=== PATIENT | female | born 1955 | race Caucasian/White ===

== ENCOUNTER 2020-02-01 17:33 | Inpatient (IN) | payer MEDICARE, BC ==
[~2020-02-01] VITALS: Ht 152.4 cm; Wt 125.1 kg
--- NOTE | 2020-02-01 21:56 | NUR ---
PT ARRIVED TO ROOM VIA STRETCHER. A&O X4. NO DISTRESS OBSERVED. ORIENTED TO ROOM. CALL LIGHT IN REACH. WILL CTM.
--- NOTE | 2020-02-01 22:50 | NUR ---
RECEIVED ORDERS FORM CONSTANZA AMANDA
[2020-02-02] VITALS (8 sets, daily range): BP systolic 101–126; BP diastolic 42–85; BMI 46.4; BMI 46.3
[2020-02-02] MEDS ORDERED: FUROSEMIDE20 MG PO (03:50)
[2020-02-02] MEDS ORDERED: EMEND40 MG PO (03:50)
[2020-02-02] MEDS ORDERED: LOTREL 10-40 M1 EACH PO (03:50)
[2020-02-02] MEDS ORDERED: POTA CHLORIDE ER 10M PO (03:50)
[2020-02-02] MEDS ORDERED: HCTZ25 MG PO (03:50)
--- NOTE | 2020-02-02 04:42 | NUR ---
PT RESTING QUIELTY. NO VOICED C/O OR CONCERS. WILL CTM.
[2020-02-02 05:27] LABS: BASOPHILS 0.1 % (0-2); EOSINOPHILS 0.1 % (0-7); HEMATOCRIT 32.8 % (36.0-48.0); HEMOGLOBIN 10.2 g/dL (12-16); LYMPHOCYTES 13.5 % (15-50); MCH 31.7 pg (26.0-34.0); MCHC 31.1 g/dL (31.0-37.0); MCV 101.9 fL (80.0-100.0); MEAN PLATELET VOLUME 9.1 fL (7.4-10.4); MONOCYTES 18.6 % (2-11); NEUTROPHILS 66.7 % (40-80); PLATELET COUNT 223 10x3/uL (130-400); RBC 3.22 10x6/uL (4.00-5.40); WBC 17.8 10x3/uL (4.8-10.8)
[2020-02-02 05:42] LABS: ANION GAP 8.3 mmol/L (8-16); CALCIUM 8.9 mg/dL (8.5-10.1); CARBON DIOXIDE 29.9 mmol/L (21.0-32.0); CREATININE - SERUM 1.1 mg/dL (0.6-1.3); POTASSIUM - SERUM 4.2 mmol/L (3.5-5.1)
--- NOTE | 2020-02-02 07:15 | NUR ---
RECEIVED PT IN BED AAOX4 RESP UNLABORED SKIN W/D COLOR WNL DDENIES ANY NEEDS OR DISCOMFORT NAD NOTED RESISTED IV TO RT WRIST WITH 22 GA IV CATH X 1 STICK USING ASEPTIC TECHNIQUE PT TOLERATED WELL
--- NOTE | 2020-02-02 16:08 | NUR ---
PT REFUSES SCDs
--- NOTE | 2020-02-02 19:20 | NUR ---
SAW TO SEVERAL NEEDS PT CO COUGHING AND OF PAIN ALL OVER BED LOW AND LOCKED CALL LIGHT IN REACH WITH FAMILY PRESENT AT THIS TIME
--- NOTE | 2020-02-03 03:29 | NUR ---
I have reviewed this patient and I concur with the Shift Assessment completed by the Licensed Practical Nurse today this shift.
[2020-02-03 04:27] VITALS: BP 119/47
[2020-02-03 06:17] LABS: ANION GAP 9.7 mmol/L (8-16); CALCIUM 8.6 mg/dL (8.5-10.1); CARBON DIOXIDE 28.4 mmol/L (21.0-32.0); MAGNESIUM - SERUM 2.4 mg/dL (1.8-2.4); POTASSIUM - SERUM 4.1 mmol/L (3.5-5.1)
[2020-02-03 06:20] LABS: BASOPHILS 0.1 % (0-2); EOSINOPHILS 0.1 % (0-7); HEMATOCRIT 30.9 % (36.0-48.0); HEMOGLOBIN 9.5 g/dL (12-16); IMMATURE GRANULOCYTES 1.1 % (0-5); LYMPHOCYTES 14.8 % (15-50); MCH 31.6 pg (26.0-34.0); MCHC 30.7 g/dL (31.0-37.0); MCV 102.7 fL (80.0-100.0); MEAN PLATELET VOLUME 9.3 fL (7.4-10.4); MONOCYTES 15.7 % (2-11); NEUTROPHILS 68.2 % (40-80); PLATELET COUNT 245 10x3/uL (130-400); RBC 3.01 10x6/uL (4.00-5.40); RDW 14.5 % (11.5-14.5); WBC 19.3 10x3/uL (4.8-10.8)
[2020-02-03 08:47] VITALS: BP 116/59
--- NOTE | 2020-02-03 12:26 | NUR ---
TEMP 102.4 PRN TYLENOL GIVEN. BLOOD CULTURES DRAWN THIS AM STILL PENDING
--- NOTE | 2020-02-03 13:03 | NUR ---
PT TEMP 99.9, PT DENIES ANY NEEDS. SITTINGUP IN CHAIR AT BEDSIDE. HAT PLACED FOR URINE COLLECTION AT NEXT VOID.
[2020-02-03 13:11] VITALS: BP 105/52
--- NOTE | 2020-02-03 14:18 | NUR ---
ATTEMPTED TO COLLECT UA FROM [facility] AFTER PT VOIDED PT REPORTS UNABLE TO URINATE INTO HAT. 2ND [facility] PLACED ADVISED PT TO LET NURSE KNOW WHEN SHE URINATES
[2020-02-03 16:46] LABS: BILIRUBIN NEGATIVE (NEGATIVE); GLUCOSE NEGATIVE (NEGATIVE); KETONE NEGATIVE (NEGATIVE); NITRITE NEGATIVE (NEGATIVE); UROBILINOGEN NORMAL (NORMAL)
[2020-02-03 16:47] LABS: BACTERIA MANY /hpf (NEGATIVE); EPITHELIAL CELLS OCC /hpf (0-5); RED CELLS - URINE 0-5 /hpf (0-5); WHITE CELLS - URINE 0-5 /hpf (NEGATIVE)
[2020-02-03 17:10] VITALS: BP 95/53
--- NOTE | 2020-02-03 19:35 | NUR ---
REPORT RECEIVED AND ROUNDING COMPLETE. PATIENT LAYING IN BED IN LOW FOWLERS POSITION. PATIENT HAS ALEFT HAND PIV WITH ABX RUNNING AT THIS TIME. PATIENT STATES SHE IS FEELING A LITTLE BETTER AND IS IN GOOD SPIRITS. NO DISTRESS NOTED AT THIS TIME. PATIENT REQUESTED A GLASS OF ICE WATER WHICH I BROUGHT TO HER. CALL LIGHT WITHIN REACH AND BED IN LOWEST LOCKED POSITION.
[2020-02-03 19:58] VITALS: BP 107/44
--- NOTE | 2020-02-03 21:44 | NUR ---
DAUGHTER CALLED AND IS UPSET THAT SHE DID NOT HAVE THE PASSWORD TO FIND OUT ABOUT HER MOTHER AND THAT HER MOTHER STATES SHE WOULD CALL HER LATER SHE IS TO TIRED TO TALK NOW. I EXPLAINED THAT SHE HAS TO HAVE A CODE TO GET INFORMATION AND SHE WAS UPSET BUT UNDERSTOOD AND STATES SHE WILL GET IT TOMORROW WHEN SHE COMES UP.
[2020-02-03 23:28] VITALS: BP 139/62
[2020-02-04 04:11] VITALS: BP 124/65
[2020-02-04 05:22] LABS: ANION GAP 9.2 mmol/L (8-16); CALCIUM 8.7 mg/dL (8.5-10.1); CARBON DIOXIDE 30.5 mmol/L (21.0-32.0); CREATININE - SERUM 1.2 mg/dL (0.6-1.3); MAGNESIUM - SERUM 2.2 mg/dL (1.8-2.4); POTASSIUM - SERUM 3.7 mmol/L (3.5-5.1)
[2020-02-04 05:25] LABS: HEMATOCRIT 31.4 % (36.0-48.0); MCH 32.5 pg (26.0-34.0); MCHC 31.8 g/dL (31.0-37.0); MCV 101.9 fL (80.0-100.0); MEAN PLATELET VOLUME 9.5 fL (7.4-10.4); PLATELET COUNT 241 10x3/uL (130-400); RBC 3.08 10x6/uL (4.00-5.40); RDW 14.8 % (11.5-14.5); WBC 21.2 10x3/uL (4.8-10.8)
[2020-02-04 08:12] VITALS: BP 124/56
[2020-02-04 10:33] LABS: LYMPHOCYTES 18 % (15-50); MONOCYTES 19 % (2-11); NEUTROPHILS 62 % (40-80); PLATELET ESTIMATE NORMAL; PLATELET MORPHOLOGY GIANT PLTS PRESENT
[2020-02-04 11:40] VITALS: BP 128/54
--- NOTE | 2020-02-04 13:32 | NUR ---
Nutrition Follow-up: Good/fair PO intake. Diet: Diabetic PO intake: 50-100% Wt: 229.4# (02/03); 237.2# (02/01) No BMs recorded Labs noted: Glu 101 Meds noted: HCTZ, Protonix, NS @ 75, electrolyte protocol -Encourage PO intake and honor food preferences within diet restrictions. -Monitor wt; noted daily wts ordered. -RD following.
[2020-02-04 16:35] VITALS: BP 125/69
[2020-02-04 20:00] VITALS: BP 100/43
--- NOTE | 2020-02-04 20:04 | NUR ---
REPORT RECEIVED AND ROUNDING COMPLETE. PATIENT SITTING IN HER CHAIR, ASSISTED HER TO HER BED TO REST. STAND BY ASSIST ONLY, WEARING NASAL CANNULA WITH O2 AT 3L, PIV TO THE LEFT HAND WITH FLUIDS RUNNING. NO DISTRESS NOTED AT THIS TIME. PATIENT STATES SHE HAS NO NEEDS, CALL LIGHT WITHIN REACH AND BED IN LOWEST LOCKED POSITION.
--- NOTE | 2020-02-04 20:18 | MORECARE ---
CASE MANAGEMENT DISCHARGE SUMMARY PATIENT: GLADIS BERG UNIT: [id number] ADM DATE: 02/01/20 AGE: 65 : 55 SEX: F ROOM/BED: D.2127 AUTHOR: LUNA ARREDONDO PHYSICIAN: REFERRING PHYSICIAN: ESHA MIX MD DATE OF SERVICE: 02/04/20 Discharge Plan Patient Name: GLADIS BERG [facility] [facility] 1955 Planned Disposition: Home with Home Health Anticipated Discharge Date: Discharge Date: Expected LOS: Initial Reviewer: [email or web address] Initial Review Date: 02/01/2020 Generated: 02/04/20 9:18 pm Patient Name: GLADIS BERG Page [id number] at 2018 All edits/amendments must be made on the electronic document DICTATION DATE: 02/04/20 2018 ROOM SERVICE BELLHOP: ALLISON 02/04/20 2018 RPT#: [id number] DC DATE: STATUS: ADM IN [facility] [address] [place] [address] END OF REPORT
--- NOTE | 2020-02-04 20:25 | MORECARE ---
CASE MANAGEMENT DISCHARGE SUMMARY PATIENT: GLADIS BERG UNIT: [id number] ADM DATE: 02/01/20 AGE: 65 : 55 SEX: F ROOM/BED: D.6316 AUTHOR: LUNA ARREDONDO PHYSICIAN: REFERRING PHYSICIAN: ESHA MIX MD DATE OF SERVICE: 02/04/20 Discharge Plan Patient Name: GLADIS BERG [facility] [facility] 1955 Planned Disposition: Home with Home Health Anticipated Discharge Date: Discharge Date: Expected LOS: Initial Reviewer: [email or web address] Initial Review Date: 02/01/2020 Generated: 02/04/20 9:24 pm DCPIA - Discharge Planning Initial Assessment Updated by [email or web address]: Minna Calderon on 02/04/20 8:20 pm * Is the patient Alert and Oriented? Yes * How many steps to enter\exit or inside your home? 0/0 * PCP Luca * Pharmacy [facility] in [place] * Preadmission Environment Home with Family * ADLs Independent * Equipment None * List name and contact numbers for known caregivers / representatives who currently or will assist patient after discharge: Dtr [phone] * Verbal permission to speak to the caregivers and representatives has been obtained from the patient. Yes * Community resources currently utilized Home Health * Please name any agencies selected above. [facility] [phone] * Additional services required to return to the preadmission environment? Yes * Can the patient safely return to the preadmission environment? No * Has this patient been hospitalized within the prior 30 days at any hospital? No Last DP export: 02/04/20 7:18 pm Patient Name: GLADIS BERG Page [phone] at 2024 All edits/amendments must be made on the electronic document DICTATION DATE: 02/04/202023 PAINT ROLLER COVERMAKER: ALLISON 02/04/202023 RPT#: [id number] DC DATE: STATUS: ADM IN [facility] [address] [place] [address] END OF REPORT
--- NOTE | 2020-02-04 20:32 | MORECARE ---
CASE MANAGEMENT DISCHARGE SUMMARY PATIENT: GLADIS BERG UNIT: [id number] ADM DATE: 02/01/20 AGE: 65 : 55 SEX: F ROOM/BED: D.0208 AUTHOR: MARIA ELENA,DOC PHYSICIAN: REFERRING PHYSICIAN: ESHA MIX MD DATE OF SERVICE: 02/04/20 Discharge Plan Patient Name: GLADIS BERG Facility: [facility]:[place] : 1955 Planned Disposition: Home with Home Health Anticipated Discharge Date: Discharge Date: Expected LOS: Initial Reviewer: [email or web address] Initial Review Date: 02/01/2020 Generated: 02/04/20 9:31 pm Comments DCP- Discharge Planning Updated by [email or web address]: Minna Calderon on 02/04/20 7:[address] Patient Name: GLADIS BERG Admission Status: Elective Accout number: [id number] Admission Date: 02-01-2020 : 1955 Admission Diagnosis:SHORTNESS OF BREATH Attending: ESHA ARORA Current LOS: 3 Anticipated DC Date: Planned Disposition: Home with Home Health Primary Insurance: MEDICARE A & B Late entry assessment completed 02/03/20 @1100 Discharge Planning Comments: CM met with patient to complete initial dc planning assessment. CM educated patient on the CM role and verbal consent given by patient to complete assessment. CM verified patient's address, phone number, and emergency contact phone numbers. Pt lives at [address] [place] [address]. Patient lives at home and her adult daughter ([phone]) lives with her. At discharge patient plans to return home and feels this is a safe discharge. CM discussed availability of home health, rehab services, and medical equipment. Pt is requiring oxygen at 3 liters, and states she is weak. Patient states she will think about IP rehab, DME oxygen providers, and states she will resume [place] [facility]. Transportation provider at discharge will be her daughter. CM will continue to follow and will assist as needed with dc plans/needs. [employer] Worker: Minna Calderon MSN,RN,CM DCPIA - Discharge Planning Initial Assessment Updated by [email or web address]: Minna Calderon on 02/04/20 8:20 pm * Is the patient Alert and Oriented? Yes * How many steps to enter\exit or inside your home? 0/0 * PCP Luca * Pharmacy [facility] [place] * Preadmission Environment Home with Family * ADLs Independent * Equipment None * List name and contact numbers for known caregivers / representatives who currently or will assist patient after discharge: Dtr [phone] * Verbal permission to speak to the caregivers and representatives has been obtained from the patient. Yes * Community resources currently utilized Home Health * Please name any agencies selected above. [facility] [phone] * Additional services required to return to the preadmission environment? Yes * Can the patient safely return to the preadmission environment? No * Has this patient been hospitalized within the prior 30 days at any hospital? No Last DP export: 02/04/20 7:25 pm Patient Name: GLADIS BERG Page [phone] at 2031 All edits/amendments must be made on the electronic document DICTATION DATE: 02/04/202030 COMPENSATION ADVISOR: ALLISON 02/04/202030 RPT#: [id number] DC DATE: STATUS: ADM IN [facility] [address] [place] [address] END OF REPORT
[2020-02-05] VITALS: BP 118/52
[2020-02-05 05:40] LABS: BASOPHILS 0.2 % (0-2); EOSINOPHILS 0.4 % (0-7); HEMATOCRIT 29.6 % (36.0-48.0); HEMOGLOBIN 9.4 g/dL (12-16); IMMATURE GRANULOCYTES 4.5 % (0-5); LYMPHOCYTES 14.4 % (15-50); MCH 32.2 pg (26.0-34.0); MCHC 31.8 g/dL (31.0-37.0); MCV 101.4 fL (80.0-100.0); MEAN PLATELET VOLUME 9.4 fL (7.4-10.4); MONOCYTES 15.4 % (2-11); NEUTROPHILS 65.1 % (40-80); PLATELET COUNT 249 10x3/uL (130-400); RBC 2.92 10x6/uL (4.00-5.40); RDW 14.6 % (11.5-14.5); WBC 18.4 10x3/uL (4.8-10.8)
[2020-02-05 05:56] LABS: % SATURATION 14 % (15-55); IRON 25 ug/dl (35-150); TOTAL IRON BIND CAPACITY 174 ug/dl (260-445); UNSAT IRON BIND CAPACITY 149 ug/dl (150-375)
[2020-02-05 06:03] LABS: CALCIUM 8.4 mg/dL (8.5-10.1); CARBON DIOXIDE 31.4 mmol/L (21.0-32.0); CREATININE - SERUM 1.1 mg/dL (0.6-1.3); VANCOMYCIN - TROUGH 13.2 ug/mL (10.0-20.0)
[2020-02-05 06:08] LABS: ANION GAP 7.6 mmol/L (8-16)
[2020-02-05 09:37] VITALS: BP 121/72
[2020-02-05 10:41] LABS: APTT 50.5 SECONDS (22.8-39.4); INR 1.12 (0.85-1.17); PROTIME 14.4 SECONDS (11.6-15.0)
[2020-02-05 14:00] VITALS: BP 144/65
--- NOTE | 2020-02-05 19:30 | NUR ---
PT IN BED, AAO X 3, RESP EVEN AND UNLABORED. NO DISTRESS NOTED. CL IN REACH, SR UP X 2.
[2020-02-05 20:00] VITALS: BP 120/55
--- NOTE | 2020-02-05 23:50 | NUR ---
PT LYING IN BED RESTING WITH EYES CLOSED. EASILY AWAKEN WITH VOICE STIMULATION. CALL LIGHT AND OTHER PERSONAL ITEMS WITH IN REACH. WILL CONTINUE TO MONITOR
[2020-02-06] VITALS: BP 125/62
[2020-02-06 04:00] VITALS: BP 139/45
[2020-02-06 05:15] LABS: BASOPHILS 0.2 % (0-2); EOSINOPHILS 0.5 % (0-7); HEMATOCRIT 30.1 % (36.0-48.0); HEMOGLOBIN 9.5 g/dL (12-16); IMMATURE GRANULOCYTES 3.4 % (0-5); LYMPHOCYTES 11.4 % (15-50); MCH 32.2 pg (26.0-34.0); MCHC 31.6 g/dL (31.0-37.0); MEAN PLATELET VOLUME 9.2 fL (7.4-10.4); MONOCYTES 13.6 % (2-11); NEUTROPHILS 70.9 % (40-80); PLATELET COUNT 298 10x3/uL (130-400); RBC 2.95 10x6/uL (4.00-5.40); RDW 14.9 % (11.5-14.5); WBC 18.4 10x3/uL (4.8-10.8)
[2020-02-06 05:33] LABS: ANION GAP 7.3 mmol/L (8-16); CALCIUM 8.8 mg/dL (8.5-10.1); CARBON DIOXIDE 34.9 mmol/L (21.0-32.0); CREATININE - SERUM 1.1 mg/dL (0.6-1.3); MAGNESIUM - SERUM 2.1 mg/dL (1.8-2.4); POTASSIUM - SERUM 3.2 mmol/L (3.5-5.1)
--- NOTE | 2020-02-06 07:29 | NUR ---
PER SPECIALS PT IS NOT SCHEDULED FOR CT GUIDED THORACENTESIS, THIS WAS ATTEMPTED YESTERDAY (02/04) AND WAS DETERMINED NOT ENOUGH FLUID TO PERFORM THORACENTESIS.
[2020-02-06 08:10] VITALS: BP 130/78
--- NOTE | 2020-02-06 08:54 | NUR ---
PT TEMP 101.5 AX BC X 2 ORDERED PER MD ORDER FOR BC FOR TEMP >101. PT DENIES NEEDS, NO ACUTE DISTRESS.
--- NOTE | 2020-02-06 09:25 | NUR ---
temp 99.8 oral, no distress noted, will continue to monitor
[2020-02-06 15:02] VITALS: BP 149/65
--- NOTE | 2020-02-06 19:30 | NUR ---
PT IN BED, AAO X 3, RESP EVEN AND UNLABORED. NO DISTRESS NOTED, CL IN REACH, SR UP X 2.
[2020-02-06 21:12] VITALS: BP 114/69
[2020-02-07 00:09] VITALS: BP 122/63
--- NOTE | 2020-02-07 05:00 | NUR ---
I have reviewed this patient and I concur with the Shift Assessment completed by the Licensed Practical Nurse today this shift.
[2020-02-07 05:07] VITALS: BP 145/65
--- NOTE | 2020-02-07 07:28 | NUR ---
PT AWAKE AND ORIENTED, LYING ON BED WATCHING TELIVISION. NO COMPLAINTS OR CONCERNS, ALL QUESTIONS ANSWERED TO THE BEST OF MY ABILITY. CL IN REACH, SRX2
[2020-02-07 09:44] VITALS: BP 103/32
[2020-02-07 09:47] LABS: MAGNESIUM - SERUM 1.6 mg/dL (1.8-2.4); VANCOMYCIN - TROUGH 58.9 ug/mL (10.0-20.0)
--- NOTE | 2020-02-07 10:16 | NUR ---
PT AWAKE AND ORIENTED, TOOK MEDICAITONS WITHOUT COMPLICATIONS. NO COMPLAINTS OR CONCERNS AT THIS TIME. CL IN REACH, SRX2.
[2020-02-07 12:54] VITALS: BP 122/50
[2020-02-07 16:00] VITALS: BP 127/62
--- NOTE | 2020-02-07 17:11 | NUR ---
I have reviewed this patient and I concur with the Shift Assessment completed by the Licensed Practical Nurse today this shift.
--- NOTE | 2020-02-07 19:30 | NUR ---
PT IN BED, AAO X 3, RESP EVEN AND UNLABORED, NO DISTRESS NOTED, CL IN REACH, SR UP X2.
[2020-02-08] VITALS: BP 117/50
--- NOTE | 2020-02-08 02:05 | NUR ---
I have reviewed this patient and I concur with the Shift Assessment completed by the Licensed Practical Nurse today this shift.
[2020-02-08 04:00] VITALS: BP 117/52
[2020-02-08 04:52] LABS: HEMATOCRIT 29.3 % (36.0-48.0); HEMOGLOBIN 9.2 g/dL (12-16); MCH 32.3 pg (26.0-34.0); MCHC 31.4 g/dL (31.0-37.0); MCV 102.8 fL (80.0-100.0); MEAN PLATELET VOLUME 9.1 fL (7.4-10.4); PLATELET COUNT 276 10x3/uL (130-400); RBC 2.85 10x6/uL (4.00-5.40); RDW 15.4 % (11.5-14.5); WBC 21.1 10x3/uL (4.8-10.8)
[2020-02-08 05:04] LABS: LYMPHOCYTES 9 % (15-50); MONOCYTES 8 % (2-11); NEUTROPHILS 79 % (40-80); PLATELET ESTIMATE NORMAL
[2020-02-08 05:05] LABS: ANION GAP 7.6 mmol/L (8-16); CALCIUM 7.3 mg/dL (8.5-10.1); CARBON DIOXIDE 32.9 mmol/L (21.0-32.0); POTASSIUM - SERUM 3.5 mmol/L (3.5-5.1)
[2020-02-08 05:08] LABS: CREATININE - SERUM 3.6 mg/dL (0.6-1.3); MAGNESIUM - SERUM 2.4 mg/dL (1.8-2.4)
--- NOTE | 2020-02-08 08:02 | NUR ---
PT AWAKE AND ORIENTED, ESCORTED TO RADIOLOGY FOR EXAM.
[2020-02-08 08:44] VITALS: BP 99/34
[2020-02-08 11:28] VITALS: Ht 152.4 cm; Wt 125.1 kg
[2020-02-08 11:41] VITALS: BP 119/47
[2020-02-08 12:35] LABS: ALBUMIN 1.6 g/dL (3.4-5.0); BILIRUBIN - DIRECT 0.19 mg/dL (0.00-0.30); BILIRUBIN - INDIRECT 0.23 mg/dL (0.00-1.00); BILIRUBIN - TOTAL 0.42 mg/dL (0.2-1.3); PROTEIN - SERUM 7.3 g/dL (6.4-8.2); VANCOMYCIN - RANDOM 37.3 ug/mL (10.0-20.0)
[2020-02-08 15:24] VITALS: BP 125/66
--- NOTE | 2020-02-08 17:26 | NUR ---
I have reviewed this patient and I concur with the Shift Assessment completed by the Licensed Practical Nurse today this shift.
--- NOTE | 2020-02-08 18:43 | NUR ---
PT ALERT AND ORIETNED, CL IN REACH, SRX2.
--- NOTE | 2020-02-08 19:22 | NUR ---
RECEIVED REPORT, WILL CONTINUE POC. PATIENT IS AAOX4, LYING IN SEMI-FOWLERS POSITION ON BREATHING TX. NO S/S OF DISTRESS OBSERVED, RR EVEN AND UNLABORED. PATIENT DENIES NEEDS AT THIS TIME. CL IN REACH, BED LOCKED AND LOWERED. WILL CTM.
[2020-02-08 20:30] VITALS: BP 124/48
[2020-02-09] VITALS (11 sets, daily range): BP systolic 114–155; BP diastolic 46–69
--- NOTE | 2020-02-09 00:32 | NUR ---
TEMP 101.2 AX, TYLENOL GIVEN PER ORDERS.
--- NOTE | 2020-02-09 02:54 | NUR ---
I have reviewed this patient and I concur with the Shift Assessment completed by the Licensed Practical Nurse today this shift.
[2020-02-09 07:29] LABS: BASOPHILS 0.2 % (0-2); EOSINOPHILS 0.4 % (0-7); HEMATOCRIT 29.2 % (36.0-48.0); HEMOGLOBIN 9.1 g/dL (12-16); IMMATURE GRANULOCYTES 1.3 % (0-5); LYMPHOCYTES 5.8 % (15-50); MCH 31.5 pg (26.0-34.0); MCHC 31.2 g/dL (31.0-37.0); MONOCYTES 10.7 % (2-11); NEUTROPHILS 81.6 % (40-80); PLATELET COUNT 290 10x3/uL (130-400); RBC 2.89 10x6/uL (4.00-5.40); RDW 15.4 % (11.5-14.5); WBC 20.2 10x3/uL (4.8-10.8)
[2020-02-09 07:31] LABS: ALBUMIN 1.6 g/dL (3.4-5.0); ANION GAP 8.9 mmol/L (8-16); BILIRUBIN - TOTAL 0.38 mg/dL (0.2-1.3); CALCIUM 8.5 mg/dL (8.5-10.1); CARBON DIOXIDE 33.4 mmol/L (21.0-32.0); MAGNESIUM - SERUM 2.5 mg/dL (1.8-2.4); POTASSIUM - SERUM 3.3 mmol/L (3.5-5.1); PROTEIN - SERUM 7.6 g/dL (6.4-8.2)
--- NOTE | 2020-02-09 08:00 | NUR ---
PT AWAKE AND ORIENTED, LYING IN BED. WAITING ON THORACENTISIS, WILL CNT. TO MONITOR. CL IN REACH,S RX2.
--- NOTE | 2020-02-09 09:09 | NUR ---
PT STILL FOR THORACENTISSI
--- NOTE | 2020-02-09 09:45 | NUR ---
PT BACK IN ROOM POST THORACENTISIS. STRICT BEDREST REQUIRED UNTIL 1130.
--- NOTE | 2020-02-09 10:50 | NUR ---
PT IS ALERT AND ORIENTED, TOLERATING POST OP WELL. V/S STABLE AND WNL. DAUGHTER AT BEDSIDE, ALL QUESTIONS ANSWERED TO THE BEST OF MY ABILITY. CL IN REACH, SRX2.
--- NOTE | 2020-02-09 11:16 | NUR ---
PT UP TO THE BATHROOM WITH MIN ASSIST FROM DAUGHTER, DAUGHTER GIVING PT A WASH UP WHILE SHE'S ON THE TOILET. TOLERATEED POST OP GETTING UP WITHOUT DIFFICULTY. CL IN REACH, SRX2, DAUGHTER AT BEDSIDE.
--- NOTE | 2020-02-09 11:27 | NUR ---
NOTED NEW RASH ON CHEST, DID NOT BEGAN APPEARING UNTIL THE ANTIBIOTIC (LEVAQUIN) WAS STARTED. TURNED OFF ABX, WILL NOTIFY OR CHANGE.
--- NOTE | 2020-02-09 13:45 | NUR ---
OT NOTE: NURSING REPORTS PT IS INDEP WITH ADLS AND MOBILITY. REPORTS THAT SHE GETS AROUND HER ROOM BY HERSELF AND TAKES CARE OF ADL NEEDS WITHOUT ASSIST. BIBI HUSSEIN, OTR/L
[2020-02-09 17:33] LABS: PROTEIN - BODY FLUID 4.7 G/DL
[2020-02-09 18:05] LABS: BILIRUBIN NEGATIVE (NEGATIVE); GLUCOSE NEGATIVE (NEGATIVE); KETONE NEGATIVE (NEGATIVE); NITRITE NEGATIVE (NEGATIVE); UROBILINOGEN NORMAL (NORMAL)
[2020-02-09 18:07] LABS: BACTERIA FEW /hpf (NEGATIVE); RED CELLS - URINE OCC /hpf (0-5); WHITE CELLS - URINE 0-5 /hpf (NEGATIVE)
[2020-02-09 19:52] LABS: EOS BF 1 %; MACROPHAGES BF 1 %; NEUT - BF 51 %
--- NOTE | 2020-02-10 01:50 | NUR ---
RESTING WITH EYES CLOSED, RESPERATIONS EVEN, NO S/S DISTRESS NOTED.
--- NOTE | 2020-02-10 03:25 | NUR ---
I have reviewed this patient and I concur with the Shift Assessment completed by the Licensed Practical Nurse today this shift.
[2020-02-10 04:23] VITALS: BP 125/69
[2020-02-10 06:33] LABS: BASOPHILS 0.1 % (0-2); EOSINOPHILS 0.7 % (0-7); HEMATOCRIT 29.8 % (36.0-48.0); HEMOGLOBIN 9.3 g/dL (12-16); IMMATURE GRANULOCYTES 0.9 % (0-5); MCH 31.3 pg (26.0-34.0); MCHC 31.2 g/dL (31.0-37.0); MCV 100.3 fL (80.0-100.0); MEAN PLATELET VOLUME 9.1 fL (7.4-10.4); MONOCYTES 7.6 % (2-11); NEUTROPHILS 83.7 % (40-80); PLATELET COUNT 344 10x3/uL (130-400); RBC 2.97 10x6/uL (4.00-5.40); RDW 15.3 % (11.5-14.5); WBC 18.5 10x3/uL (4.8-10.8)
[2020-02-10 07:29] LABS: PRO BNP 283 pg/mL (0-125)
[2020-02-10 07:41] LABS: ALBUMIN 1.7 g/dL (3.4-5.0); ANION GAP 10.1 mmol/L (8-16); BILIRUBIN - TOTAL 0.35 mg/dL (0.2-1.3); CALCIUM 8.1 mg/dL (8.5-10.1); CARBON DIOXIDE 31.1 mmol/L (21.0-32.0); MAGNESIUM - SERUM 2.4 mg/dL (1.8-2.4); POTASSIUM - SERUM 3.2 mmol/L (3.5-5.1); PROTEIN - SERUM 7.9 g/dL (6.4-8.2); VANCOMYCIN - TROUGH 18.1 ug/mL (10.0-20.0)
[2020-02-10 08:03] LABS: C-REACTIVE PROTEIN 46.2 mg/dL (0.0-0.9)
[2020-02-10 09:48] LABS: ERYTHROCYTE SEDIMENTATION RATE 136 mm/hr (0-30)
[2020-02-10 10:03] VITALS: BP 117/73
[2020-02-10 13:19] VITALS: BP 101/70
--- NOTE | 2020-02-10 14:03 | NUR ---
Nutrition Follow-up: Pt reports fluctuating appetite; ate ~25% of breakfast this AM. C/o thrush. Denies N/V; reports liquid BMs. Declines nutrition supplements. Diet: Diabetic, Renal Wt: 222.4# (02/09); 221.6# (02/02) Labs noted: K+ 3.2, Ca 8.1, Alb 1.7 Meds noted: Nystatin, Protonix, electrolyte protocol -MD may consider liberalizing to cardiac carb consistent diet (K+ 3.2). -Encourage PO intake and honor food preferences within diet restrictions. -Pt may benefit from appetite stimulant. -Monitor wt; noted daily wts ordered. -RD following.
[2020-02-10 15:10] LABS: ACID FAST SMEAR Negative (()); AFB SPECIMEN PROCESSING Concentration (())
[2020-02-10 16:56] VITALS: BP 143/56
[2020-02-10 20:17] VITALS: BP 105/63
[2020-02-11 00:24] VITALS: BP 134/65
[2020-02-11 05:11] VITALS: BP 131/57
[2020-02-11 06:36] LABS: ALBUMIN 1.5 g/dL (3.4-5.0); ANION GAP 10.3 mmol/L (8-16); BILIRUBIN - TOTAL 0.34 mg/dL (0.2-1.3); CALCIUM 8.1 mg/dL (8.5-10.1); CARBON DIOXIDE 30.5 mmol/L (21.0-32.0); CREATININE - SERUM 3.7 mg/dL (0.6-1.3); MAGNESIUM - SERUM 2.3 mg/dL (1.8-2.4); POTASSIUM - SERUM 3.8 mmol/L (3.5-5.1); PROTEIN - SERUM 7.4 g/dL (6.4-8.2)
[2020-02-11 07:04] VITALS: BP 118/42
[2020-02-11 07:32] LABS: BASOPHILS 0.1 % (0-2); EOSINOPHILS 0.7 % (0-7); HEMATOCRIT 28.6 % (36.0-48.0); HEMOGLOBIN 8.8 g/dL (12-16); IMMATURE GRANULOCYTES 0.8 % (0-5); LYMPHOCYTES 5.6 % (15-50); MCH 31.1 pg (26.0-34.0); MCHC 30.8 g/dL (31.0-37.0); MCV 101.1 fL (80.0-100.0); MEAN PLATELET VOLUME 8.7 fL (7.4-10.4); MONOCYTES 6.6 % (2-11); NEUTROPHILS 86.2 % (40-80); PLATELET COUNT 333 10x3/uL (130-400); RBC 2.83 10x6/uL (4.00-5.40); RDW 15.2 % (11.5-14.5); WBC 17.9 10x3/uL (4.8-10.8)
[2020-02-11 10:10] LABS: CALCIUM 7.7 mg/dL (8.5-10.1); CARBON DIOXIDE 29.7 mmol/L (21.0-32.0); CREATININE - SERUM 3.5 mg/dL (0.6-1.3); POTASSIUM - SERUM 3.7 mmol/L (3.5-5.1); VANCOMYCIN - TROUGH 18.8 ug/mL (10.0-20.0)
[2020-02-11 10:11] LABS: FUNGUS STAIN Final report (())
[2020-02-11 10:11] LABS: ANA REFLEX - DIRECT Negative (Negative)
[2020-02-11 10:42] LABS: BASOPHILS 0.2 % (0-2); EOSINOPHILS 1.9 % (0-7); HEMATOCRIT 27.3 % (36.0-48.0); HEMOGLOBIN 8.6 g/dL (12-16); IMMATURE GRANULOCYTES 1.4 % (0-5); MCH 33.5 pg (26.0-34.0); MCHC 31.5 g/dL (31.0-37.0); MEAN PLATELET VOLUME 9.8 fL (7.4-10.4); MONOCYTES 6.1 % (2-11); NEUTROPHILS 83.4 % (40-80); PLATELET COUNT 287 10x3/uL (130-400); RBC 2.57 10x6/uL (4.00-5.40); RDW 15.9 % (11.5-14.5); WBC 18.7 10x3/uL (4.8-10.8)
[2020-02-11 10:45] LABS: MCV 106.2 fL (80.0-100.0)
--- NOTE | 2020-02-11 12:22 | NUR ---
I have reviewed this patient and I concur with the Shift Assessment completed by the Licensed Practical Nurse today this shift.
[2020-02-11 12:37] VITALS: BP 143/46
--- NOTE | 2020-02-11 15:25 | NUR ---
PT'S DAUGHTER AT BEDSIDE AND POINTED OUT RED RASH AND PT'S CHEST AND BACK AND STATES IT HAS INCREASINGLY GOTTEN WORSE SINCE SUNDAY SHE ALSO STATES SHE WANTS TO SEE AND SPEAK WITH DR. ULLOA. DR. LAILA KELLOGG.
--- NOTE | 2020-02-11 15:37 | NUR ---
SPOME WITH MYRA TURNER AND SHE STATES SHE WILL GO SPEAK WITH PT AND PT'S DAUGHTER AND LOOK AT RASH. I VERBALIZED UNDERSTANDING.
--- NOTE | 2020-02-11 15:43 | NUR ---
DR. ULLOA ON THE PHONE SPEAKING WITH DAUGHTER NOW ALONG WITH NEEMA TURNER AT BEDSIDE.
[2020-02-11 16:20] VITALS: BP 133/60
--- NOTE | 2020-02-11 17:23 | NUR ---
PT'S AND PT'S DAUGHTER STATED TO ME PT IS GOING TO BE NPO AFTER MIDNIGHT FOR THROACENTESIS TOMORROW AND THAT IS WHAT THE DOCTOR'S TOLD THEM. NO ORDERS HAVE BEEN PLACED YET. CALLED CT AND THEY STATE THEY WILL CALL ME BACK. I VERBALIZZED UNDERSTANDING.
--- NOTE | 2020-02-11 17:50 | NUR ---
SPOKE WITH CT AND THEY STATE THEY CAN'T FIND ANY ORDERS BUT TO GO AHEAD AND MAKE PT NPO AFTER MIDNIGHT UNTIL THEY CAN FIND OUT FURTHER INFORMATION IN THE MORNING. I VERBALIZED UNDERSTANDING.
--- NOTE | 2020-02-11 19:00 | NUR ---
RECEIVED BEDSIDE REPORT. PATIENT IS RESTING COMFORTABLY IN BED. RESPIRATIONS ARE EVEN ANDD UNLABORED. NO S/S OF DISTRESS. NO C/OPAIN. CALL LIGHT WITHIN REACH. WILL CPOC.
[2020-02-11 20:00] VITALS: BP 114/53
[2020-02-12] VITALS (11 sets, daily range): BP systolic 109–133; BP diastolic 49–72
[2020-02-12 05:21] LABS: HEMATOCRIT 28.1 % (36.0-48.0); HEMOGLOBIN 8.9 g/dL (12-16); LYMPHOCYTES 5.4 % (15-50); MCH 31.8 pg (26.0-34.0); MCHC 31.7 g/dL (31.0-37.0); MEAN PLATELET VOLUME 8.7 fL (7.4-10.4); NEUTROPHILS 87.9 % (40-80); RDW 15.3 % (11.5-14.5); WBC 16.7 10x3/uL (4.8-10.8)
[2020-02-12 05:24] LABS: MCV 100.4 fL (80.0-100.0); PLATELET COUNT 349 10x3/uL (130-400)
[2020-02-12 05:56] LABS: ALBUMIN 1.5 g/dL (3.4-5.0); BILIRUBIN - TOTAL 0.27 mg/dL (0.2-1.3); CALCIUM 8.1 mg/dL (8.5-10.1); CARBON DIOXIDE 30.6 mmol/L (21.0-32.0); CREATININE - SERUM 3.5 mg/dL (0.6-1.3); MAGNESIUM - SERUM 2.3 mg/dL (1.8-2.4); POTASSIUM - SERUM 3.6 mmol/L (3.5-5.1); PROTEIN - SERUM 7.3 g/dL (6.4-8.2)
--- NOTE | 2020-02-12 07:40 | NUR ---
NO THORACENTESIS ORDERS PLACED. PAGED DR. ULLOA.
--- NOTE | 2020-02-12 08:14 | NUR ---
TALKED TO DR. ULLOA AND HE STATES DR. FARFAN SAID HE WAS GOING TO PLACE A CHEST TUBE AND HE STATES TO CALL DR. FARFAN'S NURSE MELVIN AND KEEP PT NPO. I VERBALIZED UNDERSTANDING. BESS CHARLES RN.
[2020-02-12 10:11] LABS: ANTI-GLOMERULAR BASMENT MEMBRN 2 units (0-20)
[2020-02-12 10:11] LABS: INR 1.16 (0.85-1.17); PROTIME 14.8 SECONDS (11.6-15.0)
--- NOTE | 2020-02-12 10:33 | NUR ---
PT TAKEN FOR CHEST TUBE PLACEMENTS VIA BED AND DAUGHTER TAKEN TO WAITING ROOM.
--- NOTE | 2020-02-12 12:25 | NUR ---
PT RETURNED FROM IR VIA BED. ALERT AND ORIENTED. O2 AT 2L VIA NC. VS STBALE. 10 TURKISH ANTERIOR AND POSTERIOR CHEST TUBES PLACED TO LOW SUCTION. PT'S DAUGHTER AT BEDSIDE. BED LOW. CL IN REACH. MIRANDA CORNEJO MENTIONED TO PT AND ME ABOUT GETTING PT A FOREMAN CATHETER SINCE PT IS IN PAIN WITH MOVING. I VERBALIZED UNDERSTANDING. SPOKE WITH ANDREA TURNER AND SHE STATES SHE WILL ORDER A FOREMAN. I VERBALIZED UNDERSTANDING.
--- NOTE | 2020-02-12 13:25 | NUR ---
I have reviewed this patient and I concur with the Shift Assessment completed by the Licensed Practical Nurse today this shift.
--- NOTE | 2020-02-12 13:30 | NUR ---
16 JAP[place]ESE FOREMAN CATHETER INSERTED FOR IMMOBILE, TRAUMA/SURGERY. PT TOLERATED WELL.
--- NOTE | 2020-02-12 19:09 | NUR ---
RECEIVED BEDSDEIR REPORT. PATIENT IS RESTING COMFORTABLY IN BED. RESPIRATIONS ARE EVEN AND UNLABORED. NO S/S OF DISTRESS. NO C/OPAIN. CALL LIGHT WITHIN REACH. WILL CPOC.
[2020-02-13] VITALS: BP 97/43
[2020-02-13 04:00] VITALS: BP 116/52
[2020-02-13 04:19] LABS: BASOPHILS 0.2 % (0-2); EOSINOPHILS 2.2 % (0-7); HEMATOCRIT 28.3 % (36.0-48.0); HEMOGLOBIN 8.8 g/dL (12-16); IMMATURE GRANULOCYTES 1.2 % (0-5); LYMPHOCYTES 7.5 % (15-50); MCH 31.5 pg (26.0-34.0); MCHC 31.1 g/dL (31.0-37.0); MCV 101.4 fL (80.0-100.0); MEAN PLATELET VOLUME 8.9 fL (7.4-10.4); MONOCYTES 6.5 % (2-11); NEUTROPHILS 82.4 % (40-80); PLATELET COUNT 369 10x3/uL (130-400); RBC 2.79 10x6/uL (4.00-5.40); RDW 15.3 % (11.5-14.5); WBC 12.6 10x3/uL (4.8-10.8)
[2020-02-13 04:56] LABS: ALBUMIN 1.6 g/dL (3.4-5.0); ANION GAP 9.1 mmol/L (8-16); BILIRUBIN - TOTAL 0.25 mg/dL (0.2-1.3); CALCIUM 7.8 mg/dL (8.5-10.1); CARBON DIOXIDE 30.6 mmol/L (21.0-32.0); CREATININE - SERUM 3.5 mg/dL (0.6-1.3); POTASSIUM - SERUM 3.7 mmol/L (3.5-5.1); PROTEIN - SERUM 7.3 g/dL (6.4-8.2)
--- NOTE | 2020-02-13 08:51 | EC ---
PATIENT:GLADIS BERG DATE OF SERVICE: 02/01/20 SEX: F MEDICAL RECORD: [id number] DATE OF : [birth year] LOCATION:D.M2 D.212 AGE OF PATIENT: 65 ADMISSION DATE: 02/01/20 REFERRING PHYSICIAN: INTERPRETING PHYSICIAN: SIGRID SHAFFER MD ECHOCARDIOGRAM REPORT ECHO CHARGES 4 ECHO COMPLETE Date: 02/11/20 CLINICAL DIAGNOSIS: LVH, R/O VEG ECHOCARDIOGRAPHIC MEASUREMENTS (adult normal given) AC root (d.<3.7cm) 2.6 cm LV Septum d (<1.2 cm> 0.8 cm Valve Excursion 1.4 cm LV Septum (systole) 1.3 cm Left Atria (s.<4.0cm> 3.6 cm LVPW d(<1.2cm) 0.8 cm RV (d.<2.3cm) 2.3 cm LVPW (sytole) 1.1 cm LV diastole(<5.6CM) 6.4 cm MV E-F(>70mm/sec) cm LV systole 4.8 cm LVOT Diameter 1.7 cm MV exc.(>10mm) cm Est.ejection fraction (50-75%) % DOPPLER: LVIT cm/sec A 98 cm/sec E 87 cm/sec LA cm/sec RVSP 17.2 mmHg LVOT 136 cm/sec AOP1/2T m/s Asc. Ao 170 cm/sec RVOT 92 cm/sec RA cm/sec PA 86 cm/sec AV Gradient Peak 11.5 mmHg AV Mean 7.5 mmHg AV Area 1.9 cm MV Gradient Peak 3.7 mmHg MV Mean 2.1 mmHg MV Area cm COMMENTS: Vice President Client Services: Jose KUM[employer] Field Coordinator: 3 Dr. Capone TAPE# PACS Pericardial Effusion N DATE OF SERVICE: Adequate 2D, color flow imaging, spectral Doppler, and M-Mode No LVH. LV internal dimensions are normal. Wall motion is normal. EF is greater than or equal to 55%. Aortic valve is tricuspid. No evidence of stenosis by Doppler interrogation. Left atrium is normal. Mitral valve shows no prolapse. Trace MR. Right-sided chambers are grossly normal. Trace TR. TRANSINT:[id number] Voice Confirmation ID: [id number] DOCUMENT ID: [id number] ECHOCARDIOGRAM REPORT [id number] OTIS,GLADIS SIGRID ROSARIO MD at 0851 CC: [id number] DICTATION DATE: 02/12/20 141 DIRECTOR OF RECRUITMENT AND ADMISSIONS: 02/12/20 1427 ADM IN [place] [id number] [place] [id number]
--- NOTE | 2020-02-13 12:18 | NUR ---
Rehab Prescreening Consult recieved and the chart has been reviewed. She is a good ARU candidaten when she is medically stable and has been out of bed. She has 2 chest tubes currently and has not had any therapy. Discussed with the CM Rajani Perkins RN. Rehab will follow for progress. Jacy Chandler RN Clinical Liaison, Rehab
[2020-02-13 13:04] VITALS: BP 131/68
--- NOTE | 2020-02-13 13:47 | NUR ---
Nutrition Follow-up: Diet: Diabetic/renal PO intake: varied 25-100% recently; patient was asleep at time of my visit. Last BM: 02/13/20 WT: 223#(02/12/20), 222.4#(02/10/20), 221.6#(02/03/20), Admit Wt: 237.2#(02/02/20) Noted -14.2# weight change since admit. Patient had thoracentesis yesterday. Now with two chest tubes. Labs noted: BUN 29(H), Cr 3.5(H), GFR 14(L), Glu 149(H), Alb 1.6(L) Meds noted: miralax, SSI Recommend continue current diet. Encourage PO intake. Patient has previously declined oral nutrition supplments. Hopefully appetite will improve with decreased fluid. RD following.
--- NOTE | 2020-02-13 17:00 | NUR ---
PT MIN. ASSIST TO BATHROOM AND BACK TO BED.
--- NOTE | 2020-02-13 17:38 | NUR ---
PT'S TEMP 102.7 AXILLARY AND [address] ULLOA HE STATES THAT IS NORMAL WHEN THEY FLUSH SHE TUBES WITH TPA AND TO ORDER BLOOD CULTURES X2. I VERBALIZED UNDERSTANDING. TYLENOL GIVEN FOR FEVER.
[2020-02-13 17:40] VITALS: BP 116/52
[2020-02-13 18:15] VITALS: BP 133/61
--- NOTE | 2020-02-13 19:18 | NUR ---
I have reviewed this patient and I concur with the Shift Assessment completed by the Licensed Practical Nurse today this shift.
--- NOTE | 2020-02-13 20:12 | NUR ---
REPORT AND INITIAL ROUNDS COMPLETED. PT RESTING WITH NO DISTRESS. CPOC.
[2020-02-13 20:40] VITALS: BP 84/42
--- NOTE | 2020-02-13 22:45 | NUR ---
BEDTIME MEDS DUE. PT REFUSED MIRALAX AND COLACE. STATES HER BOWELS ARE MOVING FINE. APPLIED BENADRYL ALL OVER AND LOTION TO HER BACK. CHEST TUBES TO LEFT ANTERIOR AND LEFT POSTERIOR BOTH TO LOW INTERMITENT SUCTION. SCANT OUTPUT NOTED. DRESSINGS C/D/I. FOREMAN PATENT TO BEDSIDE DRAIN BAG. FSBS 116. PT TALKATIVE ABOUT HOW SHE NEEDS TO GO HOME BECAUSE SHE HAS A WITH DEMENTIA THAT NEEDS CARE AND RIGHT NOW HER DAUGHTER IS DRIVING BACK AND FORTH HELPING OUT.
[2020-02-14 01:13] VITALS: BP 114/52
[2020-02-14 04:42] VITALS: BP 103/41
[2020-02-14 05:02] LABS: BASOPHILS 0.2 % (0-2); EOSINOPHILS 1.5 % (0-7); HEMATOCRIT 29.1 % (36.0-48.0); IMMATURE GRANULOCYTES 0.9 % (0-5); LYMPHOCYTES 9.7 % (15-50); MCH 30.9 pg (26.0-34.0); MCHC 30.9 g/dL (31.0-37.0); MEAN PLATELET VOLUME 8.7 fL (7.4-10.4); MONOCYTES 6.5 % (2-11); NEUTROPHILS 81.2 % (40-80); PLATELET COUNT 429 10x3/uL (130-400); RBC 2.91 10x6/uL (4.00-5.40); RDW 15.2 % (11.5-14.5); WBC 13.1 10x3/uL (4.8-10.8)
[2020-02-14 05:26] LABS: ALBUMIN 1.5 g/dL (3.4-5.0); ANION GAP 7.2 mmol/L (8-16); BILIRUBIN - TOTAL 0.27 mg/dL (0.2-1.3); CARBON DIOXIDE 30.8 mmol/L (21.0-32.0); CREATININE - SERUM 3.2 mg/dL (0.6-1.3); PROTEIN - SERUM 6.9 g/dL (6.4-8.2)
[2020-02-14 08:00] VITALS: BP 98/48
--- NOTE | 2020-02-14 08:07 | NUR ---
PT AWAKE AND ORIENTED, LYING IN BED WAITING ON BREAKFAST. THERE IS NO DRAINAGE IN HER CHEST TUBES. WILL CNT. TO MONITOR. PT STATES SHE'S VERY HOPEFUL TO HAVE "ALL THE TUBES" (CHEST, FOREMAN, O2) TAKEN OUT OF HER TODAY. CL IN REACH, SRX2. NO FAMILY AT BEDSIDE.
[2020-02-14 12:00] VITALS: BP 128/62
--- NOTE | 2020-02-14 14:43 | NUR ---
I have reviewed this patient and I concur with the Shift Assessment completed by the Licensed Practical Nurse today this shift.
[2020-02-14 16:00] VITALS: BP 116/59
--- NOTE | 2020-02-14 17:55 | NUR ---
OT NOTE: (DOS 02/13/2020) PT COMPLETED FACE AND HAND HYGIENE WITH SETUP. PT COMPLETED UE AROM EXS TOLERATED. PT HAD NO C/O PAIN. [phone] THANK YOU,ELIEZER GANDHI
[2020-02-14 20:00] VITALS: BP 136/70
--- NOTE | 2020-02-14 20:00 | NUR ---
REPORT RECIEVED AND INITIAL ROUNDS COMPLETED. PT RESTING IN BED WITH EYES CLOSED. ROUSES UP TO VERBAL STIMULI. RIGTH CHEST WALL INFUSAPORT ACCESSED WITH NS IVF AND ABT INFUSING. FOREMAN PATENT TO BEDSIDE DRAIN BAG, YELLOW IN COLOR. CHEST TUBE TO ANTERIOR AND POSTERIOR LEFT BACK, SCANT DRAINAGE. DRESSINGS C/D/I. CPOC.
[2020-02-15] VITALS: BP 123/54
--- NOTE | 2020-02-15 03:15 | NUR ---
PT RESTING IN BED WITH NO DISTRESS. NO LONGER FEBRILE. SKIN STILL WARM TO TOUCH. CT X 2 PATENT TO SUCTION. FOREMAN PATENT TO BEDSIDE DRAIN BAG. CLEAN/DRY. CALL LIGHT IN REACH. CPOC.
[2020-02-15 04:00] VITALS: BP 132/81
[2020-02-15 05:27] LABS: MCH 31.2 pg (26.0-34.0); MCHC 31.3 g/dL (31.0-37.0); MCV 99.7 fL (80.0-100.0); PLATELET COUNT 492 10x3/uL (130-400); RBC 3.21 10x6/uL (4.00-5.40); RDW 15.6 % (11.5-14.5)
[2020-02-15 05:30] LABS: LYMPHOCYTES 6 % (15-50); MONOCYTES 7 % (2-11); NEUTROPHILS 83 % (40-80); PLATELET ESTIMATE INCREASED
[2020-02-15 05:41] LABS: ALBUMIN 1.6 g/dL (3.4-5.0); ANION GAP 9.2 mmol/L (8-16); BILIRUBIN - TOTAL 0.35 mg/dL (0.2-1.3); CALCIUM 7.4 mg/dL (8.5-10.1); CARBON DIOXIDE 27.8 mmol/L (21.0-32.0); CREATININE - SERUM 3.1 mg/dL (0.6-1.3); PROTEIN - SERUM 6.8 g/dL (6.4-8.2); VANCOMYCIN - TROUGH 16.4 ug/mL (10.0-20.0)
--- NOTE | 2020-02-15 06:40 | NUR ---
OUTPUT ON CHEST TUBES: ANTERIOR 470 POSTERIOR 80 SEROUS IN COLOR.
--- NOTE | 2020-02-15 07:31 | NUR ---
PT AWAKE AND ORIENTED, LYING IN BED. NO COMPLAINTS OR CONCERNS AT THIST GEORGE. CL INR EACH,S RX2.
--- NOTE | 2020-02-15 09:16 | NUR ---
PT AWAKE AND ORIENTED, SCOOTED HERSLEF U IN BED. CHEST TUBES DRAINING WELL. NO COMPLAINT SO R CONCERNS, STATES SHE'S FEELING MUCH BETTER THIS MORNING THAN SHE HAS BEEN. NO FAMILY AT BEDSIDE. NO COMPLAINTS OR CONCERNS AT THIS TIME. CL IN REACH, SRX2.
[2020-02-15 09:39] VITALS: BP 130/61
--- NOTE | 2020-02-15 11:05 | NUR ---
I have reviewed this patient and I concur with the Shift Assessment completed by the Licensed Practical Nurse today this shift.
[2020-02-15 12:11] VITALS: BP 119/55
--- NOTE | 2020-02-15 13:42 | NUR ---
PT AWAKE AND ORIENTED, LYING IN BED DAUGHTER AT [facility]. HOOKED UP TO SUCTION PER MD ORDER. NO COMPLAITNS OR CONCERNS AT HTIS TIME. CL IN REACH, SRX2.
[2020-02-15 16:18] VITALS: BP 116/55
--- NOTE | 2020-02-15 17:26 | NUR ---
PT AWAKE AND ORIENTED, LYING IN BED. THOUGHT SHE NEEDED A BM, BUT ONLY PASSED GAS AT THIS TIME. NO FAMILY AT BEDSIDE. ATE SEVERAL BITES. CL IN REACH,S RX2.
[2020-02-15 20:00] VITALS: BP 118/40
--- NOTE | 2020-02-15 20:00 | NUR ---
REPORT RECIEVED AND INITIAL ROUNDS COMPLETED. PT SLEEPING, ROUSES EASILY. ST PER TELEMETRY. CURRENT TEMP 98.1, BUT STILL FEELS VERY WARM TO TOUCH. FOREMAN PATENT TO BEDSIDE DRAIN BAG. RIGHT CW PORT ACCESSED WITH NS @ 50ML/HR INFUSING. CHEST TUBE X 2 ANTERIOR/POSTERIOR BOTH PATENT AND CONNECTED TO LOW SUCTION WITH SEROUS DRAINAGE. BOTH WITH DRESSINGS C/D/I. CPOC. MONITORING TEMP AND CHEST TUBE OUTPUT.
[2020-02-16 04:00] VITALS: BP 122/46
--- NOTE | 2020-02-16 05:33 | NUR ---
PT HAS RESTED SINCE TAKING PAIN AND ITCH MEDICATION. HER TEMP FINALLY BROKE AND SHE IS RESTING COMFORTABLY. IVF INFUSING. FOREMAN PATENT TO BEDSIDE DRAIN BAG. / 'S PER TELEMETRY, WHERE SHE HAS NORMALLY BEEN 120-130 ST WITH HER FEVER.
[2020-02-16 07:12] LABS: BASOPHILS 0.1 % (0-2); EOSINOPHILS 0.8 % (0-7); HEMATOCRIT 27.8 % (36.0-48.0); HEMOGLOBIN 8.8 g/dL (12-16); IMMATURE GRANULOCYTES 1.9 % (0-5); LYMPHOCYTES 3.2 % (15-50); MCH 31.2 pg (26.0-34.0); MCHC 31.7 g/dL (31.0-37.0); MCV 98.6 fL (80.0-100.0); MONOCYTES 2.7 % (2-11); NEUTROPHILS 91.3 % (40-80); PLATELET COUNT 389 10x3/uL (130-400); RBC 2.82 10x6/uL (4.00-5.40); RDW 15.4 % (11.5-14.5); WBC 30.6 10x3/uL (4.8-10.8)
[2020-02-16 07:19] LABS: ALBUMIN 1.3 g/dL (3.4-5.0); ALKALINE PHOSPHATASE 112 U/L (30-120); ALT (SGPT) 25 U/L (10-68); BILIRUBIN - TOTAL 0.25 mg/dL (0.2-1.3); CALC OSMOLALITY 277 mosm/kg (275-300); CALCIUM 7.2 mg/dL (8.5-10.1); CHLORIDE - SERUM 101 mmol/L (98-107); CREATININE - SERUM 3.8 mg/dL (0.6-1.3); GLUCOSE 102 mg/dL (74-106); POTASSIUM - SERUM 3.9 mmol/L (3.5-5.1); PROTEIN - SERUM 5.9 g/dL (6.4-8.2); SODIUM 134 mmol/L (136-145); THYROID STIMULATING HORMONE 1.36 uIU/mL (0.36-3.74); TROPONIN-I < 0.017 ng/mL (0.000-0.060); UREA NITROGEN 41 mg/dL (7-18); eGFR NON AFRICAN AMERICAN 13 mL/min (90-120)
--- NOTE | 2020-02-16 09:48 | NUR ---
DR. ZACK CROWE, STATES NPO AFTER MIDNIGHT FOR BRONCOSCOPY IN THE AM.
[2020-02-16 09:52] VITALS: BP 100/54
--- NOTE | 2020-02-16 13:33 | NUR ---
PT AWAKE AND ORIENTED, LYING IN BED. CHANGED CVL DRESSING. ADMINISTERED PAIN MEDS PER PROTOCOL.CL IN REACH, SRX2.
[2020-02-16 13:56] VITALS: BP 117/65
[2020-02-16 18:13] VITALS: BP 120/70
--- NOTE | 2020-02-16 20:38 | MORECARE ---
CASE MANAGEMENT DISCHARGE SUMMARY PATIENT: GLADIS BERG UNIT: [id number] ADM DATE: 02/01/20 AGE: 65 : 55 SEX: F ROOM/BED: D.1460 AUTHOR: LUNA ARREDONDO PHYSICIAN: REFERRING PHYSICIAN: ESHA MIX MD DATE OF SERVICE: 02/16/20 Discharge Plan Patient Name: GLADIS BERG Facility: [facility]:[place] : 1955 Planned Disposition: Home with Home Health Anticipated Discharge Date: Discharge Date: Expected LOS: Initial Reviewer: [email or web address] Initial Review Date: 02/01/2020 Generated: 02/16/20 9:37 pm DCP- Discharge Planning Updated by [email or web address]: Minna Calderon on 02/04/20 7:[address] Patient Name: GLADIS BERG Admission Status: Elective Accout number: [id number] Admission Date: 02-01-2020 : 1955 Admission Diagnosis:SHORTNESS OF BREATH Attending: ESHA ARORA Current LOS: 3 Anticipated DC Date: Planned Disposition: Home with Home Health Primary Insurance: MEDICARE A & B Late entry assessment completed 02/03/20 @1100 Discharge Planning Comments: CM met with patient to complete initial dc planning assessment. CM educated patient on the CM role and verbal consent given by patient to complete assessment. CM verified patient's address, phone number, and emergency contact phone numbers. Pt lives at [address] [place] [address]. Patient lives at home and her adult daughter ([phone]) lives with her. At discharge patient plans to return home and feels this is a safe discharge. CM discussed availability of home health, rehab services, and medical equipment. Pt is requiring oxygen at 3 liters, and states she is weak. Patient states she will think about IP rehab, DME oxygen providers, and states she will resume [facility]. Transportation provider at discharge will be her daughter. CM will continue to follow and will assist as needed with dc plans/needs. Rpg Programmer: Minna Calderon MSN,RN,CM DCPIA - Discharge Planning Initial Assessment Updated by [email or web address]: Minna Calderon on 02/04/20 8:20 pm * Is the patient Alert and Oriented? Yes * How many steps to enter\exit or inside your home? 0/0 * PCP Luca * Pharmacy [facility] in [place] * Preadmission Environment Home with Family * ADLs Independent * Equipment None * List name and contact numbers for known caregivers / representatives who currently or will assist patient after discharge: Dtr [phone] * Verbal permission to speak to the caregivers and representatives has been obtained from the patient. Yes * Community resources currently utilized Home Health * Please name any agencies selected above. [facility] [phone] * Additional services required to return to the preadmission environment? Yes * Can the patient safely return to the preadmission environment? No * Has this patient been hospitalized within the prior 30 days at any hospital? No Last DP export: 02/04/20 7:32 pm Patient Name: GLADIS BERG Page 05668 at 2038 All edits/amendments must be made on the electronic document DICTATION DATE: 02/16/202036 PIN MACHINE OPERATOR: ALLISON 02/16/202036 RPT#: [id number] DC DATE: STATUS: ADM IN [facility] [address] [place] [address] END OF REPORT
--- NOTE | 2020-02-16 21:48 | NUR ---
OT NOTE: PT COMPLETED SUPINE TO SIT WITH MIN A. PT COMPLETED ADL MOB WITH CGA. PT COMPLETED UE AROM EXS TOLERATED. PT COMPLETED UB HYGIENE WITH SETUP. PT REQUIRED EXTENSIVE ASSIST WITH MEDICAL EQUIPMENT. [phone] THANK YOU,ELIEZER GANDHI
[2020-02-16 22:05] VITALS: BP 92/40
[2020-02-17 00:30] VITALS: BP 109/40
[2020-02-17 05:16] VITALS: BP 125/54
[2020-02-17 06:34] LABS: ALBUMIN 1.5 g/dL (3.4-5.0); ANION GAP 14.6 mmol/L (8-16); BILIRUBIN - TOTAL 0.27 mg/dL (0.2-1.3); CARBON DIOXIDE 23.9 mmol/L (21.0-32.0); CREATININE - SERUM 3.4 mg/dL (0.6-1.3); PROTEIN - SERUM 5.3 g/dL (6.4-8.2); VANCOMYCIN - RANDOM 15.9 ug/mL (10.0-20.0)
[2020-02-17 06:36] LABS: POTASSIUM - SERUM 4.5 mmol/L (3.5-5.1)
[2020-02-17 06:41] LABS: HEMATOCRIT 30.2 % (36.0-48.0); HEMOGLOBIN 9.6 g/dL (12-16); MCH 31.3 pg (26.0-34.0); MCHC 31.8 g/dL (31.0-37.0); MCV 98.4 fL (80.0-100.0); MEAN PLATELET VOLUME 9.2 fL (7.4-10.4); PLATELET COUNT 457 10x3/uL (130-400); RBC 3.07 10x6/uL (4.00-5.40); RDW 15.8 % (11.5-14.5); WBC 30.3 10x3/uL (4.8-10.8)
--- NOTE | 2020-02-17 09:16 | NUR ---
ASSESSMENT DONE. DENIES NEEDS
[2020-02-17 09:36] VITALS: BP 98/42
--- NOTE | 2020-02-17 10:12 | NUR ---
I have reviewed this patient and I concur with the Shift Assessment completed by the Licensed Practical Nurse today this shift.
[2020-02-17 10:51] LABS: EOSINOPHILS 2 % (0-7); LYMPHOCYTES 10 % (15-50); MONOCYTES 4 % (2-11); NEUTROPHILS 80 % (40-80); PLATELET ESTIMATE INCREASED
--- NOTE | 2020-02-17 12:49 | NUR ---
OT NOTE: PT HAD CHEST TUBES REMOVED THIS AM. PT ABLE TO SIT UP ON EOB WITHOUT ASSIST. REPORTED THAT SHE FELT DIZZY. ABLE TO WASH FACE AND HANDS WITH CLOTH WITH SET UP; REQUIRED ASSIST DONNING MASK AND BONNET; ATTEMPTED TO STAND AND PT BECAME INCREASINGLY MORE DIZZY. ABLE TO SCOOT UP IN BED WITH MIN ASSIST. BIBI HUSSEIN, OTR/L [phone]
--- NOTE | 2020-02-17 13:43 | NUR ---
Nutrition Follow-up: NPO for bronch today. Pt reports that she has not been eating well and is just anxious to go home. Agreed to try nutrition supplement when diet resumed if supplement is cold. Wt: 275.2# (02/16); 226.6# (02/10); 237.2# (02/01) Last BM: 02/15 Labs noted: Ca 7.0, Alb 1.5 Meds noted: Nystatin, NS @ 50, Protonix -Rec diabetic diet when medically feasible. -Monitor wt; noted daily wts ordered. -RD following.
--- NOTE | 2020-02-17 16:48 | NUR ---
WITHOUT CHANGES OR DISTRESS NOTED AT THIS TIME. DENIES NEEDS
--- NOTE | 2020-02-17 17:50 | NUR ---
OT NOTE: NURSING STATED PT GOOD TO PARTICIPATE WITH THERAPY. PT COMPLETED SUPINE TO SIT AT EOB. PT COMPLETED SIT TO STAND WITH SIDE STEPS REQUIRED CGA. PT COMPLETED BUE AROM EXS AT EOB TOLERATED. PT COMPLETED FACE HYGIENE WITH SETUP AT EOB. [phone] THANK YOU,ELIEZER GANDHI
[2020-02-17 20:00] VITALS: BP 109/55
[2020-02-18] VITALS: BP 122/60
[2020-02-18 04:00] VITALS: BP 119/54
--- NOTE | 2020-02-18 06:02 | NUR ---
BATH AND LINEN CHANGE COMPLETE. NYSTATIN POWDER AND BENADRYL CREAM APPLIED.
[2020-02-18 06:41] LABS: BASOPHILS 0.1 % (0-2); HEMATOCRIT 29.2 % (36.0-48.0); HEMOGLOBIN 9.3 g/dL (12-16); IMMATURE GRANULOCYTES 0.9 % (0-5); LYMPHOCYTES 5.2 % (15-50); MCH 30.8 pg (26.0-34.0); MCHC 31.8 g/dL (31.0-37.0); MCV 96.7 fL (80.0-100.0); MEAN PLATELET VOLUME 8.7 fL (7.4-10.4); MONOCYTES 3.6 % (2-11); NEUTROPHILS 88.2 % (40-80); PLATELET COUNT 415 10x3/uL (130-400); RBC 3.02 10x6/uL (4.00-5.40); RDW 15.6 % (11.5-14.5); WBC 24.3 10x3/uL (4.8-10.8)
[2020-02-18 06:42] LABS: ALBUMIN 1.4 g/dL (3.4-5.0); BILIRUBIN - TOTAL 0.26 mg/dL (0.2-1.3); CALCIUM 7.1 mg/dL (8.5-10.1); CARBON DIOXIDE 26.2 mmol/L (21.0-32.0); POTASSIUM - SERUM 4.2 mmol/L (3.5-5.1); PROTEIN - SERUM 5.8 g/dL (6.4-8.2)
--- NOTE | 2020-02-18 06:58 | NUR ---
ASSESSMENT DONE. DENIES NEEDS
--- NOTE | 2020-02-18 09:36 | NUR ---
I have reviewed this patient and I concur with the Shift Assessment completed by the Licensed Practical Nurse today this shift.
[2020-02-18 15:11] LABS: ANCA - ANTIMYELOPEROXIDASE <9.0 U/mL (0.0-9.0); ANCA - ANTIPROTEINASE 3 <3.5 U/mL (0.0-3.5); ANCA - ATYPICAL <1:20 titer (Neg:<1:20); ANCA - CYTOPLASMIC <1:20 titer (Neg:<1:20); ANCA - PERINUCLEAR <1:20 titer (Neg:<1:20)
--- NOTE | 2020-02-18 15:44 | NUR ---
OT NOTE: PT SITTING UPRIGHT IN CHAIR. PT COMPLETED SIT TO STAND WITH CGA. PT COMPLETED ADL MOB WITH RW REQUIRED CGA. PT COMPLETED BUE AROM EXS TOLERATED UPRIGHT IN CHAIR. PT EXHIBITED INCREASED I WITH FUNCTIONAL TASKS. [phone] THANK YOU,ELIEZER GANDHI
[2020-02-18 16:09] LABS: ACID FAST SMEAR Negative (()); AFB SPECIMEN PROCESSING Concentration (())
[2020-02-18 20:00] VITALS: BP 102/54
--- NOTE | 2020-02-19 00:55 | NUR ---
ASSISTED PT UP TO CHAIR, SPONGE BATH GIVEN.
--- NOTE | 2020-02-19 02:01 | NUR ---
I have reviewed this patient and I concur with the Shift Assessment completed by the Licensed Practical Nurse today this shift.
--- NOTE | 2020-02-19 02:11 | NUR ---
RESTING WITH EYES CLOSED, RESPERATIONS EVEN, NO S/S DISTRESS NOTED.
[2020-02-19 04:00] VITALS: BP 96/55
[2020-02-19 07:09] LABS: ANION GAP 13.4 mmol/L (8-16); CALCIUM 7.4 mg/dL (8.5-10.1); CARBON DIOXIDE 23.5 mmol/L (21.0-32.0); CREATININE - SERUM 2.6 mg/dL (0.6-1.3); POTASSIUM - SERUM 3.9 mmol/L (3.5-5.1)
--- NOTE | 2020-02-19 07:10 | NUR ---
REPORT RECEIVED FROM FRUIT AND VEGETABLE PARER AND PATIENT CARE ASSUMED. PATIENT LAYING IN BED ON BACK AWAKE AND ALERT. PATIENT COMPLAINS OF BEING COLD COVERED PATIENT WITH EXTRA BLANKET. PATIENT IS STABLE AND VSS. WILL CONTINUE WITH PLAN OF CARE. SR UPX 2 BED IN LOW POSITION AND CALL LIGHT IN REACH.
[2020-02-19 07:28] LABS: HEMOGLOBIN 8.8 g/dL (12-16); MCH 30.4 pg (26.0-34.0); MCHC 31.4 g/dL (31.0-37.0); MCV 96.9 fL (80.0-100.0); PLATELET COUNT 441 10x3/uL (130-400); RBC 2.89 10x6/uL (4.00-5.40); RDW 15.9 % (11.5-14.5)
[2020-02-19 07:29] LABS: WBC 17.4 10x3/uL (4.8-10.8)
[2020-02-19 09:26] VITALS: BP 123/60
[2020-02-19 09:29] LABS: ANISOCYTOSIS OCC; EOSINOPHILS 1 % (0-7); LYMPHOCYTES 17 % (15-50); MONOCYTES 11 % (2-11); NEUTROPHILS 68 % (40-80); PLATELET ESTIMATE INCREASED
[2020-02-19 09:30] LABS: BURR CELLS OCC; CRENATED CELLS OCC; ROULEAUX OCC
--- NOTE | 2020-02-19 11:56 | MORECARE ---
CASE MANAGEMENT DISCHARGE SUMMARY PATIENT: GLADIS BERG UNIT: [id number] ADM DATE: 02/01/20 AGE: 65 : 55 SEX: F ROOM/BED: D.5462 AUTHOR: LUNA ARREDONDO PHYSICIAN: REFERRING PHYSICIAN: ESHA MIX MD DATE OF SERVICE: 02/19/20 Discharge Plan Patient Name: GLADIS BERG Facility: [facility]:[place] : 1955 Planned Disposition: Home with Home Health Anticipated Discharge Date: Discharge Date: Expected LOS: Initial Reviewer: [email or web address] Initial Review Date: 02/01/2020 Generated: 02/19/20 12:56 pm DCP- Discharge Planning Updated by [email or web address]: Minna Calderon on 02/04/20 7:[address] Patient Name: GLADIS BERG Admission Status: Elective Accout number: [id number] Admission Date: 02-01-2020 : 1955 Admission Diagnosis:SHORTNESS OF BREATH Attending: ESHA ARORA Current LOS: 3 Anticipated DC Date: Planned Disposition: Home with Home Health Primary Insurance: MEDICARE A & B Late entry assessment completed 02/03/20 @1100 Discharge Planning Comments: CM met with patient to complete initial dc planning assessment. CM educated patient on the CM role and verbal consent given by patient to complete assessment. CM verified patient's address, phone number, and emergency contact phone numbers. Pt lives at [address] [place] [address]. Patient lives at home and her adult daughter ([phone]) lives with her. At discharge patient plans to return home and feels this is a safe discharge. CM discussed availability of home health, rehab services, and medical equipment. Pt is requiring oxygen at 3 liters, and states she is weak. Patient states she will think about IP rehab, DME oxygen providers, and states she will resume [facility]. Transportation provider at discharge will be her daughter. CM will continue to follow and will assist as needed with dc plans/needs. General Warehouse Worker: Minna Calderon MSN,RN,CM DCPIA - Discharge Planning Initial Assessment Updated by [email or web address]: Minna Calderon on 02/04/20 8:20 pm * Is the patient Alert and Oriented? Yes * How many steps to enter\exit or inside your home? 0/0 * PCP Luca * Pharmacy [facility] in [place] * Preadmission Environment Home with Family * ADLs Independent * Equipment None * List name and contact numbers for known caregivers / representatives who currently or will assist patient after discharge: Dtr [phone] * Verbal permission to speak to the caregivers and representatives has been obtained from the patient. Yes * Community resources currently utilized Home Health * Please name any agencies selected above. [facility] [phone] * Additional services required to return to the preadmission environment? Yes * Can the patient safely return to the preadmission environment? No * Has this patient been hospitalized within the prior 30 days at any hospital? No External Providers [facility] Next Contact Date: Service Request Date: Service Type: Resolution: Reviewer: Comments: Last DP export: 02/16/20 7:38 p Patient Name: GLADIS BERG Page 69670 at 1156 All edits/amendments must be made on the electronic document DICTATION DATE: 02/19/20 1156 ACTIVITIES DIRECTOR SCOUTING: ALLISON 02/19/20 1156 RPT#: [id number] DC DATE: STATUS: ADM IN [facility] [address] [place] [address] END OF REPORT
--- NOTE | 2020-02-19 12:03 | MORECARE ---
CASE MANAGEMENT DISCHARGE SUMMARY PATIENT: GLADIS BERG UNIT: [id number] ADM DATE: 02/01/20 AGE: 65 : 55 SEX: F ROOM/BED: D.1358 AUTHOR: LUNA ARREDONDO PHYSICIAN: REFERRING PHYSICIAN: ESHA MIX MD DATE OF SERVICE: 02/19/20 Discharge Plan Patient Name: GLADIS BERG Facility: [facility]:[place] : 1955 Planned Disposition: Home with Home Health Anticipated Discharge Date: Discharge Date: Expected LOS: Initial Reviewer: [email or web address] Initial Review Date: 02/01/2020 Generated: 02/19/20 1:03 pm DCP- Discharge Planning Updated by [email or web address]: Minna Calderon on 02/04/20 7:[address] Patient Name: GLADIS BERG Admission Status: Elective Accout number: [id number] Admission Date: 02-01-2020 : 1955 Admission Diagnosis:SHORTNESS OF BREATH Attending: ESHA ARORA Current LOS: 3 Anticipated DC Date: Planned Disposition: Home with Home Health Primary Insurance: MEDICARE A & B Late entry assessment completed 02/03/20 @1100 Discharge Planning Comments: CM met with patient to complete initial dc planning assessment. CM educated patient on the CM role and verbal consent given by patient to complete assessment. CM verified patient's address, phone number, and emergency contact phone numbers. Pt lives at [address] [place] [address]. Patient lives at home and her adult daughter ([phone]) lives with her. At discharge patient plans to return home and feels this is a safe discharge. CM discussed availability of home health, rehab services, and medical equipment. Pt is requiring oxygen at 3 liters, and states she is weak. Patient states she will think about IP rehab, DME oxygen providers, and states she will resume [facility]. Transportation provider at discharge will be her daughter. CM will continue to follow and will assist as needed with dc plans/needs. Lead Producer: Minna Calderon MSN,RN,CM DCPIA - Discharge Planning Initial Assessment Updated by [email or web address]: Minna Calderon on 02/04/20 8:20 pm * Is the patient Alert and Oriented? Yes * How many steps to enter\exit or inside your home? 0/0 * PCP Luca * Pharm[facility] in [place] * Preadmission Environment Home with Family * ADLs Independent * Equipment None * List name and contact numbers for known caregivers / representatives who currently or will assist patient after discharge: Dtr [phone] * Verbal permission to speak to the caregivers and representatives has been obtained from the patient. Yes * Community resources currently utilized Home Health * Please name any agencies selected above. [facility] [phone] * Additional services required to return to the preadmission environment? Yes * Can the patient safely return to the preadmission environment? No * Has this patient been hospitalized within the prior 30 days at any hospital? No External Providers External Provider: [facility] Next Contact Date: Service Request Date: Service Type: Resolution: Reviewer: Comments: Last DP export: 02/19/20 10:56 a Patient Name: GLADIS BERG Page 73701 at 1203 All edits/amendments must be made on the electronic document DICTATION DATE: 02/19/20 1203 ASPHALT DAUBER: ALLISON 02/19/20 1203 RPT#: [id number] DC DATE: STATUS: ADM IN [facility] [address] [place] [address] END OF REPORT
[2020-02-19] MEDS ORDERED: FLAGYL500 MG PO (12:13)
[2020-02-19] MEDS ORDERED: AUGMENTIN 875-11 TAB PO ×2 (12:16→12:42)
--- NOTE | 2020-02-19 13:04 | NUR ---
Nutrition Follow-up: Pt reports appetite improving. Drank an Ensure last night. Denies N/V/C/D. Noted plans to d/c today. Diet: Diabetic, Ensure TID PO intake: 50-75% yesterday Wt: 275.2# (02/16); 237.2# (02/01) Last BM: 02/17 Labs noted: Glu 95, Ca 7.4 Meds noted: Nystatin, Protonix, electrolyte protocol -Encourage PO intake and honor food preferences within diet restrictions. -Monitor wt; noted daily wts ordered. -RD following.
--- NOTE | 2020-02-19 13:42 | NUR ---
PATIENT IS STABLE AND VSS. PATIENT DENIES ANY NEEDS OR PAIN. ORDERS RECEIVED FOR DC. WRIITEN AND VERBAL INSTRUCTIONS GIVEN TO PATIENT AND DTR. BOTH VERBALIZED UNDERSTANDING AND PATIENT SIGNED DC INSTRUCTIONS. DE-ACESSED RT CHEST PORT WITHOUT DIFFICULTY AND PRESSURE DRSG APPLIED. PATIENT TO FRONT DOOR VIA WC ACCOMPANIED BY HOSPITAL PERSONNEL TO PRIVATE VEHICLE DRIVEN BY DTR.
--- NOTE | 2020-02-19 15:19 | NUR ---
OT NOTE: PT COMPLETED SUPINE TO SIT WITH SBA. PT COMPLETED SIT TO STAND WITH CGA. PT COMPLETED BED TO CHAIR TSF WITH CGA. PT COMPLETED UE AROM AXS WITH FUNCTIONAL TASKS. PT HAS INCREASED WITH FUNCTIONAL INDEPENDENCE. [phone] THANK YOU,ELIEZER GANDHI
--- NOTE | 2020-02-19 16:03 | MORECARE ---
CASE MANAGEMENT DISCHARGE SUMMARY PATIENT: GLADIS BERG UNIT: [id number] ADM DATE: 02/01/20 AGE: 65 : 55 SEX: F ROOM/BED: D.6039 AUTHOR: MARIA ELENA,DOC PHYSICIAN: REFERRING PHYSICIAN: ESHA MIX MD DATE OF SERVICE: 02/19/20 Discharge Plan Patient Name: GLADIS BERG Facility: [facility]:[place] : 1955 Planned Disposition: Home with Home Health Anticipated Discharge Date: Discharge Date: 02/19/2020 Expected LOS: Initial Reviewer: [email or web address] Initial Review Date: 02/01/2020 Generated: 02/19/20 5:03 pm Comments DCP- Discharge Planning Updated by [email or web address]: Minna Calderon on 02/19/20 2:[address] Patient Name: GLADIS BERG Admission Status: Elective Accout number: [id number] Admission Date: 02-01-2020 : 1955 Admission Diagnosis:SHORTNESS OF BREATH Attending: ESHA ARORA Current LOS: 18 Anticipated DC Date: Planned Disposition: Home with Home Health Primary Insurance: MEDICARE A & B Discharge Planning Comments: CM spoke with patient per request. Pt states she wants to go home and she would like CM to help her. The patient is weak, and is on continuous 02 at 4 liters. CM called [facility] home and medical equipment at [phone] to get her home 02, a walker, and a bedside commode. CM also called Darell at [facility] at [phone]. CM faxed clinicals. Patient and daughter in agreement with plan. DC IMM delivered, explained, signed by the patient, and placed in chart. Signed form also left with the patient. Preparation Operator: Minna Calderon MSN,RN,CM DCP- Discharge Planning Updated by [email or web address]: Minna Calderon on 02/04/20 7:[address] Patient Name: GLADIS BERG Admission Status: Elective Accout number: [id number] Admission Date: 02-01-2020 : 1955 Admission Diagnosis:SHORTNESS OF BREATH Attending: ESHA ARORA Current LOS: 3 Anticipated DC Date: Planned Disposition: Home with Home Health Primary Insurance: MEDICARE A & B Late entry assessment completed 02/03/20 @1100 Discharge Planning Comments: CM met with patient to complete initial dc planning assessment. CM educated patient on the CM role and verbal consent given by patient to complete assessment. CM verified patient's address, phone number, and emergency contact phone numbers. Pt lives at [address] in [place] [facility]. Patient lives at home and her adult daughter ([phone]) lives with her. At discharge patient plans to return home and feels this is a safe discharge. CM discussed availability of home health, rehab services, and medical equipment. Pt is requiring oxygen at 3 liters, and states she is weak. Patient states she will think about IP rehab, DME oxygen providers, and states she will resume [facility]. Transportation provider at discharge will be her daughter. CM will continue to follow and will assist as needed with dc plans/needs. Preparation Operator: Minna Calderon MSN,RN, DCPIA - Discharge Planning Initial Assessment Updated by [email or web address]: Minna Calderon on 02/04/20 8:20 pm * Is the patient Alert and Oriented? Yes * How many steps to enter\exit or inside your home? 0/0 * PCP Luca * Pharmacy [facility] in [place] * Preadmission Environment Home with Family * ADLs Independent * Equipment None * List name and contact numbers for known caregivers / representatives who currently or will assist patient after discharge: Dtr [phone] * Verbal permission to speak to the caregivers and representatives has been obtained from the patient. Yes * Community resources currently utilized Home Health * Please name any agencies selected above. [facility] [phone] * Additional services required to return to the preadmission environment? Yes * Can the patient safely return to the preadmission environment? No * Has this patient been hospitalized within the prior 30 days at any hospital? No Last DP export: 02/19/20 11:03 a Patient Name: GLADIS BERG Page 10106 at 1603 All edits/amendments must be made on the electronic document DICTATION DATE: 02/19/20 1603 CLUB LOUNGE ATTENDANT: ALLISON 02/19/20 1603 RPT#: [id number] DC DATE:02/19/20 STATUS: DIS IN [facility] [address] [place] [address] END OF REPORT
--- NOTE | 2020-02-20 09:23 | MORECARE ---
CASE MANAGEMENT DISCHARGE SUMMARY PATIENT: GLADIS BERG UNIT: [id number] ADM DATE: 02/01/20 AGE: 65 : 55 SEX: F ROOM/BED: D.1088 AUTHOR: MARIA ELENA,DOC PHYSICIAN: REFERRING PHYSICIAN: ESHA MIX MD DATE OF SERVICE: 02/20/20 Discharge Plan Patient Name: GLADIS BERG Facility: [facility]:[place] : 1955 Planned Disposition: Home with Home Health Anticipated Discharge Date: Discharge Date: 02/19/2020 Expected LOS: Initial Reviewer: [email or web address] Initial Review Date: 02/01/2020 Generated: 02/20/20 10:23 am Comments DCP- Discharge Planning Updated by [email or web address]: Minna Calderon on 02/19/20 2:[address] Patient Name: GLADIS BERG Admission Status: Elective Accout number: [id number] Admission Date: 02-01-2020 : 1955 Admission Diagnosis:SHORTNESS OF BREATH Attending: ESHA ARORA Current LOS: 18 Anticipated DC Date: Planned Disposition: Home with Home Health Primary Insurance: MEDICARE A & B Discharge Planning Comments: CM spoke with patient per request. Pt states she wants to go home and she would like CM to help her. The patient is weak, and is on continuous 02 at 4 liters. CM called [facility] home and medical equipment at [phone] to get her home 02, a walker, and a bedside commode. CM also called Darell at [facility] at [phone]. CM faxed clinicals. Patient and daughter in agreement with plan. DC IMM delivered, explained, signed by the patient, and placed in chart. Signed form also left with the patient. Masking Machine Operator: Minna Calderon MSN,RN,CM DCP- Discharge Planning Updated by [id number]: Minna Calderon on 02/04/20 7:[address] Patient Name: GLADIS BERG Admission Status: Elective Accout number: [id number] Admission Date: 02-01-2020 : 1955 Admission Diagnosis:SHORTNESS OF BREATH Attending: ESHA ARORA Current LOS: 3 Anticipated DC Date: Planned Disposition: Home with Home Health Primary Insurance: MEDICARE A & B Late entry assessment completed 02/03/20 @1100 Discharge Planning Comments: CM met with patient to complete initial dc planning assessment. CM educated patient on the CM role and verbal consent given by patient to complete assessment. CM verified patient's address, phone number, and emergency contact phone numbers. Pt lives at [address] in [place]. Patient lives at home and her adult daughter ([phone]) lives with her. At discharge patient plans to return home and feels this is a safe discharge. CM discussed availability of home health, rehab services, and medical equipment. Pt is requiring oxygen at 3 liters, and states she is weak. Patient states she will think about IP rehab, DME oxygen providers, and states she will resume [facility]. Transportation provider at discharge will be her daughter. CM will continue to follow and will assist as needed with dc plans/needs. Masking Machine Operator: Minna Calderon MSN,RN, DCPIA - Discharge Planning Initial Assessment Updated by [email or web address]: Minna Calderon on 02/04/20 8:20 pm * Is the patient Alert and Oriented? Yes * How many steps to enter\exit or inside your home? 0/0 * PCP Luca * Pharmacy [facility] in [place] * Preadmission Environment Home with Family * ADLs Independent * Equipment None * List name and contact numbers for known caregivers / representatives who currently or will assist patient after discharge: Dtr [phone] * Verbal permission to speak to the caregivers and representatives has been obtained from the patient. Yes * Community resources currently utilized Home Health * Please name any agencies selected above. [facility] [phone] * Additional services required to return to the preadmission environment? Yes * Can the patient safely return to the preadmission environment? No * Has this patient been hospitalized within the prior 30 days at any hospital? No Last DP export: 02/19/20 3:03 p Patient Name: GLADIS BERG Page 43454 at 0923 All edits/amendments must be made on the electronic document DICTATION DATE: 02/20/20922 GLOVE TURNER: ALLISON 02/20/20922 RPT#: [id number] DC DATE:02/19/20 STATUS: DIS IN [facility] [address] [place] [address] END OF REPORT
[2020-02-20 11:10] LABS: FUNGUS STAIN Final report (())
== END 2020-02-19 13:48 | disposition home health service (06) | DRG 193 ==
LOC: D.M2 17:33
PROVIDERS: Emergency Medicine; Family Medicine; General Practice; Internal Medicine Nephrology; Internal Medicine Pulmonary Disease; Radiology Vascular & Interventional Radiology; ADMIT Family Medicine; ATTEND Family Medicine
PROC: 0W9B3ZZ Drainage of Left Pleural Cavity, Percutaneous Approach (ICD-10-PCS; principal; 2020-02-09 09:07)
PROC: 0W9B30Z Drainage of Left Pleural Cavity with Drainage Device, Percutaneous Approach (ICD-10-PCS; 2020-02-12)
PROC: 3E03317 Introduction of Other Thrombolytic into Peripheral Vein, Percutaneous Approach (ICD-10-PCS; 2020-02-14)
PROC: 0B9J8ZX Drainage of Left Lower Lung Lobe, Via Natural or Artificial Opening Endoscopic, Diagnostic (ICD-10-PCS; 2020-02-17)
DX: J18.9 Pneumonia, unspecified organism (principal); J96.01 Acute respiratory failure with hypoxia; N17.0 Acute kidney failure with tubular necrosis; E43 Unspecified severe protein-calorie malnutrition; J44.1 Chronic obstructive pulmonary disease with (acute) exacerbation; J44.0 Chronic obstructive pulmonary disease with (acute) lower respiratory infection; F17.203 Nicotine dependence unspecified, with withdrawal; E87.1 Hypo-osmolality and hyponatremia; R04.2 Hemoptysis; Z68.42 Body mass index [BMI] 45.0-49.9, adult; C18.9 Malignant neoplasm of colon, unspecified; J90 Pleural effusion, not elsewhere classified; E11.65 Type 2 diabetes mellitus with hyperglycemia; I10 Essential (primary) hypertension; D53.9 Nutritional anemia, unspecified; E66.01 Morbid (severe) obesity due to excess calories; N14.1 Nephropathy induced by other drugs, medicaments and biological substances; T36.8X5A Adverse effect of other systemic antibiotics, initial encounter